=== PATIENT | female | born 1985 | race Caucasian/White ===

== ENCOUNTER 2018-02-28 06:04 | Day surgery (SDC) | payer OTHER ==
[2018-02-24 14:10] VITALS: BMI 18.6
[2018-02-28] MEDS ORDERED: Fentanyl 100 MCG/2 ML VIAL ONE (06:50)
--- NOTE | 2018-02-28 07:36 | RAD ---
ABDOMEN 1 VIEW: HISTORY: Preoperative exam. Renal calculi. COMPARISON: None. FINDINGS: Solitary calcification projecting over the right renal silhouette measuring approximately 9 mm. The bowel gas pattern is nonspecific. No evidence of pneumoperitoneum on the supine projection. IMPRESSION: Right-sided renal calculi. POS: [facility]
[2018-02-28] MEDS ORDERED: Meperidine HCl/PF 25 MG/ML VIAL ONE (08:39)
--- NOTE | 2018-02-28 09:16 | OP ---
DATE OF PROCEDURE: 02/28/2018 PREOPERATIVE DIAGNOSIS: Right renal calcification. POSTOPERATIVE DIAGNOSIS: Right renal calcification. PROCEDURE PERFORMED: Right ESWL. SURGEON: Dr. Michele Grace. ANESTHETIC: General. ESTIMATED BLOOD LOSS: Not recorded. FINDINGS: There is an 8 mm upper pole right renal stone that was treated with 2000 shocks at level 3 to level 4. It appeared to fragment very well. A stent was not placed. OPERATIVE TECHNIQUE: After obtaining written and verbal consent from the patient, documenting normal preoperative blood work and clotting studies and platelet function assay, she was taken the operatin g suite. She was placed in the supine position on the treatment table. PlexiPulses placed on her lo wer extremities and turned on. She was given a general anesthetic, oral operative intubation. She w as then coupled with lithotripter unit. The stone was easily visualized with the fluoroscopy unit an d placed in the treatment focal point. Shockwave was commenced at a rate of 60 at a very low kV. Af ter a couple 100 shocks, a 5 minute pause was given. At this point, we did increase the level to 3 a nd then for the last 400 shocks to level 4. The stone started breaking up immediately, by 2000 shock s, it looked like it was entirely in pieces with no dominant or dark piece remaining. At this point, the procedure was terminated. She was awakened, extubated, and taken by stretcher to the recovery r oom.
== END 2018-02-28 09:48 | disposition home or self-care (01) ==
LOC: SDC 06:04
PROVIDERS: ATTEND Urology
PROC: 0TF3XZZ Fragmentation in Right Kidney Pelvis, External Approach (ICD-10-PCS; principal; 2018-02-28)
DX: N20.0 Calculus of kidney (principal)
CPT/HCPCS: 74018; 96374; J2175; J3010